=== PATIENT | female | born 2000 | race American Indian/Alaskan Native ===

== ENCOUNTER 2022-04-15 15:15 | Emergency (ER) | payer MEDICAID ==
[2022-04-15 18:27] VITALS: BP 123/83
--- NOTE | 2022-04-15 23:54 | Emergency Department Report ---
ED General Adult HPI - General Chief complaint: Dental/Oral Stated complaint: MY LIP PUI?: No Time Seen by Provider: 04/15/22 23:48 Source: patient, RN notes reviewed Mode of arrival: Ambulatory Limitations: No Limitations - History of Present Illness Initial comments: The patient was evaluated in the emergency department for symptoms described in the history of present illness. He/she was evaluated in the context of the global COVID-19 pandemic, which necessitated consideration that the patient might be at risk for infection with the virus that causes COVID-19. Institutional protocols and algorithms that pertain to the evaluation of patients at risk for COVID-19 are in a state of rapid change based on information released by regulatory bodies including the CDC and federal and state organizations. These policies and algorithms were followed during the patient's care in the emergency department. Please note that these policies, procedures and recommendations changed on a rapid basis. This is a 21-year-old female who reports that she is not , presenting to the department today with a complaint of cold sore to her left lateral lip. She denies additional injuries and complaints. -: days(s) Location: mouth Consistency: constant Improves with: none Worsens with: none Associated Symptoms: denies other symptoms - Related Data Previous Rx's Medication Instructions Recorded Last Taken Type Docosanol [Abreva] 1 applicatio TP 5XD 7 Days #1 04/16/22 Unknown Rx bottle ED Review of Systems ROS: Stated complaint: MY LIP Other details as noted in HPI Comment: All other systems reviewed and negative Skin: lesions, pruritus ED Past Medical Hx - Past Medical History Previous Medical History?: No - Surgical History Past Surgical History?: No - Social History Smoking Status: Never Smoker - Medications Home Medications: Home Medications Medication Instructions Recorded Confirmed Last Taken Type Docosanol [Abreva] 1 applicatio TP 5XD 7 Days #1 04/16/22 Unknown Rx bottle ED Physical Exam - General Limitations: No Limitations General appearance: alert, in no apparent distress, obese - Head Head exam: Present: atraumatic, normocephalic - Eye Eye exam: Present: normal appearance, EOMI. Absent: nystagmus - ENT ENT exam: Present: normal orophraynx, mucous membranes moist, normal external ear exam, other (There is a single vesicular lesion noted on the superior lateral aspect of the left lip at the vermilion border, suggestive of oral herpes simplex.). Absent: normal exam - Neck Neck exam: Present: normal inspection, full ROM. Absent: tenderness, meningismus - Respiratory Respiratory exam: Present: normal lung sounds bilaterally. Absent: respiratory distress, wheezes, rales, rhonchi, stridor, decreased breath sounds - Cardiovascular Cardiovascular Exam: Present: regular rate, normal rhythm, normal heart sounds. Absent: bradycardia, tachycardia, irregular rhythm, systolic murmur, diastolic murmur, rubs, gallop - GI/Abdominal GI/Abdominal exam: Present: soft. Absent: distended, tenderness, guarding, rebound, rigid, pulsatile mass - Extremities Exam Extremities exam: Present: normal inspection, full ROM, other (2+ pulses noted in the bilateral upper extremities. There is no long bony tenderness. The muscular compartments are soft.) - Back Exam Back exam: Present: normal inspection, full ROM. Absent: tenderness, CVA tenderness (R), CVA tenderness (L), paraspinal tenderness, vertebral tenderness - Neurological Exam Neurological exam: Present: alert, normal gait, other (No facial droop. Tongue midline. Extraocular movements intact bilaterally. Facial sensation intact to light touch in V1, V2, V3 distribution bilaterally. 5 and a 5 strength in 4 extremities. Sensation intact to light touch in 4 extremities.). Absent: motor sensory deficit - Psychiatric Psychiatric exam: Present: normal affect, normal mood - Skin Skin exam: Present: warm, dry, intact, normal color. Absent: rash ED Course Vital Signs 04/15/22 18:25 Temperature 98.4 F Pulse Rate 85 Respiratory 18 Rate Blood Pressure 123/83 O2 Sat by Pulse 99 Oximetry ED Medical Decision Making - Lab Data Vital Signs 04/15/22 18:25 Temperature 98.4 F Pulse Rate 85 Respiratory 18 Rate Blood Pressure 123/83 O2 Sat by Pulse 99 Oximetry - Medical Decision Making Differential diagnosis, including but limited to: Cold sore, herpes simplex 1 Assessment and plan: 21-year-old female who states that she is not , presenting with isolated single vesicular lesion on the left superior lateral lip, suggestive of cold sore/herpes simplex 1. It does not appear to be superinfected. There is no evidence of abscess. There is no evidence of airway compromise. Supportive care, topicals to be prescribed. May follow-up with outpatient primary care. Patient also requesting a work note which she may have Critical care attestation.: If time is entered above; I have spent that time in minutes in the direct care of this critically ill patient, excluding procedure time. ED Disposition Clinical Impression: Cold sore Disposition: 01 HOME / SELF CARE / HOMELESS Is pt being admited?: No Does the pt Need Aspirin: No Condition: Stable Instructions: Cold Sore, [id number] Additional Instructions: Patient may alternate ice packs and heat packs as needed for pain. Patient is advised to avoid mouth to skin contact with other human beings, and is advised to avoid sexual contact and kissing other individuals. May take the prescribed medication as needed and directed. Follow-up with an outpatient primary care doctor as needed. May also take [id number] Tylenol/Motrin as needed for physical pain. Please return to the emergency room right away with new pain, worsened pain, migration of pain, projectile vomiting, change in mental status, confusion, inability tolerate liquid feeds, new, worsened or different symptoms not present on the initial emergency room evaluation Prescriptions: Docosanol [Abreva] 1 applicatio TP 5XD 7 Days #1 bottle Referrals: ANDREW YANCEY MD [Primary Care Provider] - as needed Forms: Work/School Release Form(ED)
== END 2022-04-16 00:55 | disposition home or self-care (01) ==
LOC: ED 15:15
DX: B00.1 Herpesviral vesicular dermatitis (principal)
CPT/HCPCS: 99282